=== PATIENT | male | born 1960 | race Caucasian/White ===

== ENCOUNTER 2018-06-30 09:57 | Emergency (ER) | payer BC, OTHER ==
[~2018-06-30] VITALS: Ht 177.8 cm; Wt 126.1 kg
[2018-06-30] MEDS ORDERED: ASPI-630 PO (10:17)
[2018-06-30] MEDS ORDERED: OMEP20TA63 PO (10:17)
[2018-06-30] MEDS ORDERED: ATOR80TA72 PO (10:17)
[2018-06-30] MEDS ORDERED: METO25TA4 PO (10:17)
[2018-06-30 10:27] LABS: BASO % 1 % (0-3); EOS # 0.1 x10^3/uL (0.0-0.7); EOS % 2 % (0-3); HEMATOCRIT 42.3 % (39.0-53.0); HEMOGLOBIN 14.9 g/dL (13.0-17.5); LYMPH # 2.7 x10^3/uL (1.0-4.8); LYMPH % 39 % (24-48); MEAN CORPUSCULAR HEMOGLOBIN 31 pg (25-35); MEAN CORPUSCULAR HGB CONC 35 g/dL (31-37); MEAN CORPUSCULAR VOLUME 89 fL (79-100); MONO # 0.8 x10^3/uL (0.0-1.1); MONO % 11 % (0-9); NEUT # 3.2 x10^3uL (1.8-7.7); NEUT % 47 % (31-73); PLATELET COUNT 180 x10^3/uL (140-400); RED BLOOD COUNT 4.74 x10^6/uL (4.30-5.70); RED CELL DISTRIBUTION WIDTH 13.3 % (11.5-14.5); WHITE BLOOD COUNT 6.9 x10^3/uL (4.0-11.0)
[2018-06-30] MEDS ORDERED: ASPIRIN CHEWABLE 81 MG TABLET. PO ONE (10:30)
[2018-06-30 10:37] LABS: CALCIUM 9.2 mg/dL (8.5-10.1); GFR 77.6; POTASSIUM 4.1 mmol/L (3.5-5.1); PROTHROMBIN TIME PATIENT 12.9 SEC (11.7-14.0)
[2018-06-30 10:41] LABS: D-DIMER 0.53 ug/mlFEU (0.00-0.50)
--- NOTE | 2018-06-30 10:52 | RAD ---
EXAM: CHEST 1 VIEW History: Hypertension , chest pain COMPARISON: None available. TECHNIQUE: Single portable radiograph of the chest FINDINGS: Low lung volumes and technique accentuates heart size and pulmonary vascularity. Mild cardiomegaly. Minimal prominent appearing bilateral perihilar bronchovascular markings. The costophrenic sulci are clear and well demarcated. IMPRESSION: Minimal prominent appearing bilateral interstitial lung markings could be minimal congestive changes. Electronically signed by: Ayaz Ryan MD (06/30/2018 10:49 AM) [place] [id number]
--- NOTE | 2018-06-30 11:15 | EKG ---
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
[2018-06-30] MEDS ORDERED: IOHEXOL 300 MG/ML 100ML VIAL. IV ONE (12:30)
[2018-06-30] MEDS ORDERED: CONTRAST GIVEN. MC PRN (12:30)
--- NOTE | 2018-06-30 12:57 | RAD ---
Examination: CT angiography chest HISTORY: History of left-sided chest pain, elevated d-dimer COMPARISON: None available TECHNIQUE: Axial CT and radiographic images were performed with IV contrast. Coronal and sagittal 3-D MIP reformats are performed. Exposure: One or more of the following individualized dose reduction techniques were utilized for this examination: 1. Automated exposure control 2. Adjustment of the mA and/or kV according to patient size 3. Use of iterative reconstruction technique FINDINGS: The central airways are patent. Diffuse coronary artery calcifications identified. Mild cardiomegaly. The caliber of the aorta grossly appears unremarkable. There is no evidence of filling defect identified in the main pulmonary arterial trunk and right and left main pulmonary arteries and the visualized lobar, segmental branches of the pulmonary arteries. Mild emphysematous changes identified in the lungs. Mild bibasilar lung airspace opacities likely atelectasis. Linear atelectasis left upper lobe of the lung. The visualized liver, spleen, adrenals grossly appears unremarkable. There is mild extension of contrast into the IVC. Moderate degenerative changes thoracic spine. Mild compression changes of the thoracic vertebral bodies from T7 to T10 vertebral levels. IMPRESSION: 1. No evidence of pulmonary embolism. 2. Coronary artery calcifications. 3. Reflux of contrast into the IVC could be due to mild elevation of the right heart pressures. Correlate clinically. Electronically signed by: Ayaz Ryan MD (06/30/2018 12:54 PM) [place] [id number]
--- NOTE | 2018-06-30 13:16 | PHYS DOC ---
Past Medical History Past Medical History: CAD, High Cholesterol, Hypertension Past Surgical History: Coronary Bypass Surgery Alcohol Use: Occasionally Drug Use: None Adult General Chief Complaint Chief Complaint: HYPERTENSION HPI HPI Patient is a 57 year old male who presents with right side chest pain. Patient awoke this morning with pain in the left scapular and left shoulder and left chest area. He is uncertain what is causing the pain. He did not have any trauma. He denies prior history of similar symptoms. He went to work but the pain felt worse so he decided to come to the emergency department. The patient does work in maintenance at a long term. He presents to the ER complaining of sharp pain that is sometimes worse with movement. Review of Systems Review of Systems Constitutional: Denies fever or chills Eyes: Denies change in visual acuity HENT: Denies nasal congestion Respiratory: Denies cough or shortness of breath Cardiovascular: No additional information not addressed in HPI GI: Denies abdominal pain : Denies dysuria Musculoskeletal: Denies back pain Integument: Denies rash or skin lesions Neurologic: Denies headache Endocrine: Denies polyuria All other systems were reviewed and found to be within normal limits, except as documented in this note. Current Medications Current Medications Current Medications Medications (Trade) Dose Ordered Sig/Fred Start Time Stop Time Status Last Admin Dose Admin Aspirin (Children'S Aspirin) 324 mg 1X ONCE 06/30/18 10:30 06/30/18 10:31 DC 06/30/18 10:31 324 MG Info (CONTRAST GIVEN -- Rx MONITORING) 1 each PRN DAILY PRN 06/30/18 12:30 07/02/18 12:29 Iohexol (Omnipaque 300 Mg/ml) 75 ml 1X ONCE 06/30/18 12:30 06/30/18 12:31 DC 06/30/18 12:33 75 ML Allergies Allergies Allergies Coded Allergies Type Severity Reaction Last Updated Verified No Known Drug Allergies 06/30/18 No Physical Exam Physical Exam Constitutional: Well developed, well nourished, no acute distress, non-toxic appearance HENT: Normocephalic, atraumatic, bilateral external ears normal, oropharynx moist Eyes: PERRLA, EOMI, conjunctiva normal, no discharge Neck: Normal range of motion, no tenderness, supple, no stridor Cardiovascular:Heart rate regular rhythm, no murmur Lungs & Thorax: Bilateral breath sounds clear to auscultation Abdomen: Bowel sounds normal, soft, no tenderness Skin: Warm, dry, no erythema, no rash Extremities: No edema Neurologic: Alert and oriented X 3 Psychologic: Affect normal Current Patient Data Vital Signs Vital Signs Date Time Temp Pulse Resp B/P (MAP) Pulse Ox O2 Delivery O2 Flow Rate FiO2 06/30/18 11:41 50 16 97 06/30/18 10:03 98.0 190/93 (125) Room Air 98.0 Lab Values Laboratory Tests Test 06/30/18 10:10 06/30/18 13:11 White Blood Count 6.9 x10^3/uL (4.0-11.0) Red Blood Count 4.74 x10^6/uL (4.30-5.70) Hemoglobin 14.9 g/dL (13.0-17.5) Hematocrit 42.3 % (39.0-53.0) Mean Corpuscular Volume 89 fL (79-100) Mean Corpuscular Hemoglobin 31 pg (25-35) Mean Corpuscular Hemoglobin Concent 35 g/dL (31-37) Red Cell Distribution Width 13.3 % (11.5-14.5) Platelet Count 180 x10^3/uL (140-400) Neutrophils (%) (Auto) 47 % (31-73) Lymphocytes (%) (Auto) 39 % (24-48) Monocytes (%) (Auto) 11 % (0-9) H Eosinophils (%) (Auto) 2 % (0-3) Basophils (%) (Auto) 1 % (0-3) Neutrophils # (Auto) 3.2 x10^3uL (1.8-7.7) Lymphocytes # (Auto) 2.7 x10^3/uL (1.0-4.8) Monocytes # (Auto) 0.8 x10^3/uL (0.0-1.1) Eosinophils # (Auto) 0.1 x10^3/uL (0.0-0.7) Basophils # (Auto) 0.0 x10^3/uL (0.0-0.2) Prothrombin Time 12.9 SEC (11.7-14.0) Prothrombin Time INR 1.0 (0.8-1.1) PTT 26 SEC (24-38) D-Dimer (Arminda) 0.53 ug/mlFEU (0.00-0.50) H Sodium Level 141 mmol/L (136-145) Potassium Level 4.1 mmol/L (3.5-5.1) Chloride Level 103 mmol/L (98-107) Carbon Dioxide Level 29 mmol/L (21-32) Anion Gap 9 (6-14) Blood Urea Nitrogen 17 mg/dL (8-26) Creatinine 1.0 mg/dL (0.7-1.3) Estimated GFR (Cockcroft-Gault) 77.6 Glucose Level 115 mg/dL (70-99) H Calcium Level 9.2 mg/dL (8.5-10.1) Troponin I Quantitative < 0.017 ng/mL (0.000-0.055) < 0.017 ng/mL (0.000-0.055) SI-Tjb-H-Type Natriuretic Peptide 83 pg/mL (0-124) Laboratory Tests 06/30/18 10:10 Laboratory Tests 06/30/18 10:10 EKG EKG No STEMI Radiology/Procedures Radiology/Procedures FINDINGS: The central airways are patent. Diffuse coronary artery calcifications identified. Mild cardiomegaly. The caliber of the aorta grossly appears unremarkable. There is no evidence of filling defect identified in the main pulmonary arterial trunk and right and left main pulmonary arteries and the visualized lobar, segmental branches of the pulmonary arteries. Mild emphysematous changes identified in the lungs. Mild bibasilar lung airspace opacities likely atelectasis. Linear atelectasis left upper lobe of the lung. The visualized liver, spleen, adrenals grossly appears unremarkable. There is mild extension of contrast into the IVC. Moderate degenerative changes thoracic spine. Mild compression changes of the thoracic vertebral bodies from T7 to T10 vertebral levels. IMPRESSION: 1. No evidence of pulmonary embolism. 2. Coronary artery calcifications. 3. Reflux of contrast into the IVC could be due to mild elevation of the right heart pressures. Correlate clinically. Course & Med Decision Making Course & Med Decision Making Pertinent Labs and Imaging studies reviewed. (See chart for details) Patient is evaluated on arrival to his room. He is complaining of pain primarily seems musculoskeletal in nature. Pain is along the left chest and left rib cage and left shoulder and scapular area. The patient does however have a significant history for coronary artery disease and hypertension and hypercholesterolemia. Plan today is to do acute coronary syndrome workup to rule out cardiac cause for his symptoms. He is noted to be mildly hypertensive on the monitor as well. BP is 180's. 13:00: Patient resting comfortably. Pain symptoms are resolved. Initial d- dimer was mildly elevated. Because of this, CT angiography was performed. There was no pulmonary embolus seen. Initial troponin was also negative. Repeat troponin and EKG are ordered and pending. Anticipate discharge home if these are normal. 13:45: Patient currently has no pain. He has had 2 EKGs that are normal. His troponins have not elevated. He has been noted to have ongoing high blood pressure. He is treated with metoprolol daily. He is advised to contact his primary care physician to arrange follow-up regarding this. Patient also has hypersomnolence during the day despite adequate sleep. His describes episodes of apnea and gasping for air at night. He did have a workup scheduled for possible sleep apnea but was unable to complete the workup. He is advised to pursue this further. Follow-up with primary doctor. Jama Disclaimer Jama Disclaimer This electronic medical record was generated, in whole or in part, using a voice recognition dictation system. Departure Departure Referrals: NO PCP (PCP) FLORENTINO MO DO Jun 30, 2018 13:16
--- NOTE | 2018-06-30 13:17 | EKG ---
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
[2018-06-30 13:34] VITALS: BP 173/79
== END 2018-06-30 13:57 | disposition home or self-care (01) ==
LOC: ER 09:57
DX: R00.1 Bradycardia, unspecified (principal); R07.89 Other chest pain; I25.10 Atherosclerotic heart disease of native coronary artery without angina pectoris; E78.00 Pure hypercholesterolemia, unspecified; I10 Essential (primary) hypertension; Z95.1 Presence of aortocoronary bypass graft
CPT/HCPCS: 36415; 71045; 71275; 80048; 83880; 84484; 85025; 85379; 85610; 85730; 93005; 99285; Q9967